=== PATIENT | female | born 1995 | race Caucasian/White ===

== ENCOUNTER 2021-01-24 20:13 | Emergency (ER) | payer MEDICAID ==
[~2021-01-24] VITALS: Ht 162.6 cm; Wt 92.5 kg
[2021-01-24 20:18] VITALS: BP_SYST 144
--- NOTE | 2021-01-24 20:22 | NUR ---
Patient to ER bed H1 to gown for evaluation. Side rails up.
--- NOTE | 2021-01-24 20:23 | NUR ---
Patient BIB by family from home. C/O left foot pain x today. Patient played trampoline and caught up and hurt left foot today ~ 1800 PM. A/O,X4, left foot pain, swelling, pain rate 01/02.
--- NOTE | 2021-01-24 20:25 | NUR ---
ER Dr. Mojica at bedside examining patient.
--- NOTE | 2021-01-24 21:10 | NUR ---
Returned from radiology, back to [facility].
[2021-01-24] MEDS ORDERED: IBUPROFEN 800 MG TABLET PO ONE (21:15)
[2021-01-24] MEDS ORDERED: IBUP-1969 PO (21:28)
[2021-01-24 21:35] VITALS: BP_SYST 144
--- NOTE | 2021-01-24 21:35 | NUR ---
Patient given written and verbal discharge instructions and verbalizes understanding. ER MD discussed with patient the results and treatment provided. Patient in stable condition. ID arm band removed. Rx of Ibuprofen given. Patient educated on pain management and to follow up with PMD. Pain Scale 2/10. Opportunity for questions provided and answered. Medication side effect fact sheet provided.
== END 2021-01-24 21:35 | disposition home or self-care (01) ==
LOC: SED 20:13
DX: S93.601A Unspecified sprain of right foot, initial encounter (principal); X50.0XXA Overexertion from strenuous movement or load, initial encounter; Y93.44 Activity, trampolining; Y92.89 Other specified places as the place of occurrence of the external cause; Y99.8 Other external cause status
CPT/HCPCS: 99283